=== PATIENT | female | born 1985 | race Caucasian/White ===

== ENCOUNTER → 2017-01-10 | Outpatient (CLI) | payer BC, SELFPAY ==
--- NOTE | 2017-01-10 14:46 | US ---
EXAM DESCRIPTION: Breast,Left: US CLINICAL HISTORY: 31 yearsFemaleLEFT BREAST LUMP COMPARISON: Digital 3-D diagnostic tomosynthesis bilateral breast on this visit TECHNIQUE: Transcutaneous scanning of the left breast utilizing two-dimensional mode. Scanning performed by the clinical immunologist and Dr. Valiente. FINDINGS: Scanning of the 600 clock position of the left breast from the nipple to 4 cm from the nipple where patient palpates a mass. Skin marker indicates this area. No discrete solid mass or cyst. No skin thickening. No parenchymal edema or large calcification. IMPRESSION: 1. Bi-Rads Category 2: Benign. 2. Please refer to bilateral 3-D diagnostic breast tomosynthesis examination and report on this visit today. The findings and the follow-up plan were reviewed in person with the patient after the examination. Right communication regarding the IMPRESSION and follow-up plan will be mailed to the patient and referring health care provider. Electronically signed by: Harry Valiente MD 01/10/2017 2:45 PM CDT
--- NOTE | 2017-01-11 15:41 | MAM ---
EXAM DESCRIPTION: 3D Diagnostic, Bilateral: Digital mammography. CLINICAL HISTORY: 31 yearsFemaleBREAST LUMP Grape - size lump underneath the midleft breast found approximately two weeks ago. Nontender. No family history of breast cancer. Premenopausal. COMPARISON: Baseline study at this facility. No prior reports available. TECHNIQUE: Bilateral CC , LM, and MLO projection full-field images, 3-D tomosynthesis digital mammographic technique. Also bilateral synthesized CC/ MLO , and LM full-field images. CAD not utilized. FINDINGS: The breast parenchymal density pattern is: Heterogeneously dense breast tissue, which may obscure small masses. No skin thickening or nipple retraction marker indicating palpable lesion at the 600 clock position of the posterior third of the left breast. No focal, stellate mass or density, focal asymmetry , and no suspicious microcalcifications bilaterally. ULTRASOUND: Scanning of the 600 clock position of the left breast from the nipple to 4 cm from the nipple where patient palpates a mass. Skin marker indicates this area. No discrete solid mass or cyst. No skin thickening. No parenchymal edema or large calcification. IMPRESSION: BI-RADS CATEGORY: 2 - BENIGN FINDINGS. FOLLOW UP: Routine digital bilateral mammographic screening, beginning at age 40. The findings and the follow-up plan were reviewed in person with the patient after the examination. Written communication regarding the IMPRESSION and follow-up plan will be mailed to the patient and referring health care provider. According to the [employer], yearly mammograms are recommended starting at age 40 and continuing as long as a woman is in good health. Any breast change noted on a breast self-exam should be reported promptly to the patient's healthcare provider. Breast MRI is recommended for women with an approximately 20-25% or greater lifetime risk of breast cancer, including women with a strong family history of breast or ovarian cancer and women who have been treated for Hodgkin's disease. A negative breast imaging report should not delay tissue diagnosis in patients with significant clinical history or physical findings. Electronically signed by: Harry Valiente MD 01/11/2017 3:40 PM CDT
== END | disposition home or self-care (01) ==
LOC: MAMMO 13:31
PROVIDERS: ATTEND Nurse Practitioner Family
DX: Z12.31 Encounter for screening mammogram for malignant neoplasm of breast (principal)
CPT/HCPCS: 76641; G0204; G0279